=== PATIENT | female | born 1960 | race Caucasian/White ===

== ENCOUNTER 2022-08-26 15:50 | Emergency (ER) | payer OTHER ==
[~2022-08-26] VITALS: Ht 170.2 cm; Wt 93.0 kg
[2022-08-26] MEDS: KETOROLAC 60 MG VIAL (30MG/ML) IM ONE ×2 (16:45→16:46)
[2022-08-26] MEDS: ORPHENADRINE CITRATE 30 MG/ML ML ONE (16:46)
[2022-08-26] MEDS: ORPHENADRINE CITRATE 30 MG/ML ML IM ONE (16:46)
[2022-08-26 17:32] VITALS: BP 186/67
[2022-08-26] MEDS ORDERED: CYCL10TA16 PO (17:53)
[2022-08-26] MEDS ORDERED: IBUP-2070 PO (17:53)
== END 2022-08-26 18:06 | disposition home or self-care (01) ==
LOC: EDH 15:50
DX: S00.81XA Abrasion of other part of head, initial encounter (principal); S80.211A Abrasion, right knee, initial encounter; S80.812A Abrasion, left lower leg, initial encounter; I10 Essential (primary) hypertension; M54.50 Low back pain, unspecified; R07.89 Other chest pain; V49.49XA Driver injured in collision with other motor vehicles in traffic accident, initial encounter; Y93.89 Activity, other specified; Y92.413 State road as the place of occurrence of the external cause; Y99.8 Other external cause status
CPT/HCPCS: 99285; 72125; 72128; 96372 ×2; J1885; J2360